=== PATIENT | male | born 1955 | race Caucasian/White ===

== ENCOUNTER 2019-07-04 06:16 | Day surgery (SDC) | payer OTHER ==
[~2019-07-04] VITALS: Ht 157.5 cm; Wt 69.4 kg
[2019-07-04] MEDS ORDERED: LACTATED RINGERS 1,000 ML IV SCH (06:40)
[2019-07-04] MEDS ORDERED: BUPIVACAINE HCL/PF 0.5% (5MG/ML) 10ML ONE ×2 (08:40→09:22)
[2019-07-04] MEDS ORDERED: SKIN ADHESIVE 0.7 GM EA TOP ONE (08:40)
[2019-07-04] MEDS ORDERED: MIDAZOLAM HCL 2 MG/2 ML VIAL ONE (08:50)
[2019-07-04] MEDS ORDERED: FENTANYL CITRATE/PF 50MCG/ML 2ML VIAL ONE (08:50)
[2019-07-04] MEDS ORDERED: PROPOFOL 200MG/20ML VIAL IV ONE (08:51)
[2019-07-04] MEDS ORDERED: ROCURONIUM BROMIDE 10MG/ML VIAL 5ML IV ONE (08:51)
[2019-07-04] MEDS ORDERED: LIDOCAINE HCL/PF 1% 10 MG/ML 5ML VIAL ONE (08:52)
[2019-07-04] MEDS ORDERED: CEFAZOLIN SODIUM 1000MG/VIAL ONE (09:06)
[2019-07-04] MEDS ORDERED: SODIUM CHLORIDE 0.9% 10ML VIAL ONE (09:06)
[2019-07-04] MEDS ORDERED: DEXAMETHASONE 4MG/ML 1ML VIAL ONE (09:16)
[2019-07-04] MEDS ORDERED: ONDANSETRON HCL 4MG/2ML INJ ONE (09:16)
[2019-07-04] MEDS ORDERED: GLYCOPYRROLATE 0.2 MG/ML 2ML VIAL ONE (09:44)
[2019-07-04] MEDS ORDERED: NEOSTIGMINE METHYLSULFATE 1MG/ML 10 ML VIAL ONE (09:44)
[2019-07-04] MEDS ORDERED: BUPIVACAINE HCL 0.5% 175 ML in ON-Q PUMP (PM013=P270X2) IR SCH (09:45)
[2019-07-04] MEDS ORDERED: BUPIVACAINE HCL 0.5% 175 ML in ON-Q PM013 DRUG DELIV DEVICE 1 EA IR SCH (09:45)
[2019-07-04] MEDS ORDERED: HYDROMORPHONE HCL/PF 2MG/ML CPJ IV PRN (10:15)
[2019-07-04 11:28] VITALS: BP 137/83
[2019-07-04] MEDS ORDERED: ONDANSETRON HCL 4MG/2ML INJ IV SCH (12:45)
== END 2019-07-04 12:35 | disposition home or self-care (01) ==
LOC: OR 06:16
PROVIDERS: ATTEND Surgery
DX: K40.90 Unilateral inguinal hernia, without obstruction or gangrene, not specified as recurrent (principal); Z98.890 Other specified postprocedural states
CPT/HCPCS: 49505; C1781; J0690; J1100; J1170; J2250; J2405; J2704; J2710; J3010; J3490